=== PATIENT | female | born 1970 | race Caucasian/White ===

== ENCOUNTER 2016-08-01 10:34 | Day surgery (SDC) | payer BC ==
[~2016-08-01] VITALS: Ht 160 cm
[~2016-08-01 10:34] MED LIST: AMBIEN CR12.5 MG PO; COLACE-DPS100 MG PO; DIOVAN HCT 3201 EAC1 PO; EFFEXOR XR DPS150 MG PO; GLUCOPHAGE1000 MG PO; KEFLEX-DPS500 MG PO; LASIX DPS20 MG PO; NEURONTIN DPS300 MG PO; NORCO 7.5-3251 EACH PO; TRICOR145 MG PO; VALIUM-DPS5 MG PO; ZOCOR DPS40 MG PO
--- NOTE | 2016-08-02 07:52 | OR ---
ADMIT: 08/01/2016 RM/LOC: [facility] MR#: [id number] [address] [place] [id number] K[address] [place] [address] Operative/Delivery Room Report SEX: F AGE: 46 : 1970 SURGERY DATE: 08/01/2016 SURGEON: Jose Alberts MD SPACE ENGINEER: None. PREPROCEDURE DIAGNOSES: 1. Left sacroiliac joint dysfunction. 2. Left-sided buttock pain. POSTPROCEDURE DIAGNOSES: 1. Left sacroiliac joint dysfunction. 2. Left-sided buttock pain. PROCEDURE PERFORMED: Left sacroiliac joint injection. INDICATIONS FOR PROCEDURE: The patient is a pleasant female with history of chronic low back pain secondary to above mentioned diagnoses, comes here for planned left-sided SI joint injection. ANESTHESIA: Local without sedation. ESTIMATED BLOOD LOSS: Zero. COMPLICATIONS: None immediately evident. DESCRIPTION OF PROCEDURE: After the patient was seen in the preoperative area, vitals signs were taken. Prior to the procedure, the risks, benefits, and alternative therapies were discussed at length. Patient consent was obtained and updated. The patient was taken to the fluoroscopy suite and placed on the fluoroscopy table in the prone position. Pressure points were padded to comfort, monitors applied, and a timeout performed. C-arm was brought in to identify the left SI joint. Lidocaine plain 1%, approximately 2 mL, was used to anesthetize the skin and underlying ADMIT: 08/01/2016 RM/LOC: [facility] MR#: [id number] [address] [address] [address]DA[address] [place] [address] Operative/Delivery Room Report SEX: F AGE: 46 : 1970 subcutaneous tissue. A 3.5-inch 22-gauge curved-tip needle was then advanced through the anesthetized skin and placed inside the inferior portion of the SI joint. Isovue-300 was injected into the SI joint and showed good spread into the SI joint. After correct placement was confirmed, 5 mL of 0.25% Marcaine and 80 mg of methylprednisolone were injected. The patient tolerated the procedure well without any complications. The patient was then brought to PACU where she recovered nicely. PLAN: The patient was examined after 20 minutes and had 20% reduction of pain. Discharge instructions were given, followup scheduled. The patient was discharged home with a cross country truck driver. Jose Alberts MD/ michelle JOB #: [id number] CC: Jose Alberts, Attending Physician Loi Chaney, Family Physician
== END 2016-08-01 12:07 | disposition home or self-care (01) ==
LOC: SSS 10:34
PROC: 3E0U3BZ Introduction of Anesthetic Agent into Joints, Percutaneous Approach (ICD-10-PCS; principal; 2016-08-01)
PROC: 3E0U33Z Introduction of Anti-inflammatory into Joints, Percutaneous Approach (ICD-10-PCS; principal; 2016-08-01)
DX: G89.29 Other chronic pain (principal); M53.3 Sacrococcygeal disorders, not elsewhere classified; M51.26 Other intervertebral disc displacement, lumbar region; M96.1 Postlaminectomy syndrome, not elsewhere classified; Z98.890 Other specified postprocedural states; M48.06 Spinal stenosis, lumbar region; G89.18 Other acute postprocedural pain; M71.38 Other bursal cyst, other site; Z79.899 Other long term (current) drug therapy; Z80.0 Family history of malignant neoplasm of digestive organs

== ENCOUNTER 2016-08-03 16:54 | Emergency (ER) | payer BC ==
--- NOTE | 2016-08-06 12:04 | CO ---
ADMIT: 08/03/2016 RM/LOC: ER [facility] MR#: [id number] [address] [address] KAI LAZO [address] [place] [address] Consultation SEX: F AGE: 46 : 1970 DATE OF CONSULTATION: 08/03/2016 ATTENDING PHYSICIAN: Alon Rodríguez MD CONSULTING PHYSICIAN: Alexey Joe MD This is a consult note from the ER, Dr. April Pradhan. REASON FOR CONSULT: Back pain and disk herniation. HISTORY OF PRESENT ILLNESS: Ms. Lazo is a very pleasant woman, who had been trialed for spinal cord stimulator with good relief but ended up having a pretty big disk herniation, so I performed a diskectomy on her in March. She actually has had three months of very good relief and over the last week, has had recurrent severe pain in her left leg. She did have a little bit of trouble initiating urine, but reports normal sensation and normal overall function. She is sore, but she is not weak in the leg on the left. PAST MEDICAL HISTORY: Past back surgery, diabetes mellitus, depression, hyperlipidemia, and chronic pain. SOCIAL HISTORY: She is a nonsmoker and nondrinker. FAMILY HISTORY: No history of neurosurgical disease. REVIEW OF SYSTEMS: Complete review of systems was obtained with pertinent positives in the HPI. PHYSICAL EXAMINATION: VITAL SIGNS: 155/89, 73 beats, 18 respirations, 112.4 kg, 98.9 degrees, and 100% on room air. GENERAL: She is morbidly obese 46-year-old woman, who looks older than her stated age with an atraumatic head. HEENT: No scleral icterus. Clear oropharynx. LUNGS: Normal respiratory excursion. ABDOMEN: Obese abdomen. NEUROLOGICAL EXAMINATION: MENTAL STATUS: She is awake, alert, and oriented x4. She has no dysphonia, dysarthria, or aphasia. Her affect is appropriate. Her thought content is normal. CRANIAL NERVES: Cranial nerves II through XII are individually tested and found to be intact without deficit. MOTOR EXAM: Motor exam reveals 5/5 strength in bilateral upper and lower extremities. Deep tendon reflexes 3/4 in the upper and lower extremities including left ankle. CEREBELLAR: No cerebellar signs. She has severe pain. Gait was not tested. ADMIT: 08/03/2016 RM/LOC: [facility] MR#: [id number] [address] [address] RUBEN KAI M [address] [place] [address] Consultation SEX: F AGE: 46 : 1970 ASSESSMENT AND PLAN: Ms. Lazo is a very pleasant woman, who has an MRI that shows the area of disk that was just inferior most compressive to the nerve was resected. The chronically bulged area still appears to be present and I have a question of whether there is some acute new disk herniation just lateral to the prior herniation. On her MRI from today, she appears having S1 radiculitis. She may need repeat epidural steroid injection. It is possible she may need her back fused or consider placement of spinal cord stimulator. I do not think she has an emergent need for hospitalization at this time. I will plan to have her follow up with Dr. Alberts as scheduled next . Alexey Joe MD/ michelle JOB #: [id number] CC: Alon Rodríguez MD, Attending Physician Jose Alberts MD, Family Physician Jose Alberts MD
--- NOTE | 2016-08-07 10:17 | ER ---
ADMIT: 08/03/2016 RM/LOC: ER [facility] MR#: [id number] [address] [address] KAI MIRANDA [address] [place] [address] Emergency Room Report SEX: F AGE: 46 : 1970 DATE: 08/03/2016 ADDENDUM: CHIEF COMPLAINT: Low back pain. HISTORY OF PRESENT ILLNESS: This is a 46-year-old female, who has left lower sided back pain right at her SI joint. On examination, she is very tender in the left sciatica. I did do a rectal exam. She had great rectal tone. I spoke with Dr. Alexey Joe concerning this patient. He suggested doing MRI of her L-spine. He actually came in to see the patient after the MRI was done. I am sending her home with Valium for muscle relaxant, having her continue her oxycodone and follow up with Dr. Alexey Joe and Dr. Alberts as scheduled. CLINICAL IMPRESSION: Acute low back pain with bulging disc and S1 nerve root compression. DISPOSITION: Stable at discharge, and we will follow up as planned. SABRINA Malagon / Hakeem Neal MD / michelle JOB #: [id number] CC: Alon Rodríguez MD, Attending Physician Jose Alberts MD, Family Physician
== END 2016-08-03 21:00 | disposition home or self-care (01) ==
LOC: ER 16:54
DX: M51.87 Other intervertebral disc disorders, lumbosacral region (principal); I10 Essential (primary) hypertension; F32.9 Major depressive disorder, single episode, unspecified; E11.9 Type 2 diabetes mellitus without complications; Z79.82 Long term (current) use of aspirin; Z79.899 Other long term (current) drug therapy

== ENCOUNTER 2016-08-09 07:26 | Day surgery (SDC) | payer BC ==
[~2016-08-09] VITALS: Ht 160 cm; Wt 113.6 kg
--- NOTE | 2016-08-10 08:06 | OR ---
ADMIT: 08/09/2016 RM/LOC: [facility] MR#: [id number] [address] [address] KAI MIRANDA [address] [place] [address] Operative/Delivery Room Report SEX: F AGE: 46 : 1970 SURGERY DATE: 08/09/2016 SURGEON: Jose Alberts MD SAFETY PIN ASSEMBLING MACHINE OPERATOR: None. PREOPERATIVE DIAGNOSES: 1. Lumbar disk degeneration. 2. Lumbosacral radiculopathy. POSTOPERATIVE DIAGNOSES: 1. Lumbar disk degeneration. 2. Lumbosacral radiculopathy. PROCEDURE PERFORMED: Left L4-L5 and L5-S1 transforaminal steroid injection. INDICATIONS FOR PROCEDURE: The patient is a pleasant female with history of chronic low back pain with radicular symptoms, comes here for planned transforaminal injection. ANESTHESIA: Local without sedation. ESTIMATED BLOOD LOSS: Zero. COMPLICATIONS: None immediately evident. DESCRIPTION OF THE PROCEDURE: After the patient was seen in the preoperative area, vitals signs were taken. Prior to the procedure, the risks, benefits, and alternative therapies were discussed at length. Patient consent was obtained and updated. The patient was taken to the fluoroscopy suite and placed on the fluoroscopy table in the prone position. Pressure points were padded to comfort, monitors applied, and a timeout performed. The patient's lumbosacral area was then prepped and draped sterilely using ChloraPrep. C-arm fluoroscopy was then brought in to identify the transverse process of L4 and L5 on the left side. Lidocaine 1%, approximately 2 mL, was used to anesthetize the skin and underlying subcutaneous tissue. A 3.5-inch curved-tip 22-gauge spinal needle then was entered and advanced to make contact with the inferomedial portion of the transverse process on the left. ADMIT: 08/09/2016 RM/LOC: [facility] MR#: [id number] [id number] [place], [place] [address] KAI MIRANDA [address] [place] [address] Operative/Delivery Room Report SEX: F AGE: 46 : 1970 The needle was then worked off in a corkscrew method and placed into the uppermost portion of the neural foramina. A total of 2 mL of Isovue was instilled showing excellent epidural, as well as nerve root sheath, spread. The patient had reproduction of her typical pain. The patient then received 2 mL of 80 mg of Depo Medrol and 0.25% Marcaine plain distributed at each level. The patient tolerated the procedure well, had no complications, and was taken to the PACU. PLAN: The patient was examined after 20 minutes and had 40% reduction of pain. Discharge instructions were given, followup scheduled. The patient was discharged home with a school bus driver/custodian. Jose Alberts MD/ michelle JOB #: [id number] CC: Jose Alberts, Attending Physician Loi Chaney, Family Physician
== END 2016-08-09 09:34 | disposition home or self-care (01) ==
LOC: SSS 07:26
PROC: 3E0R3BZ Introduction of Anesthetic Agent into Spinal Canal, Percutaneous Approach (ICD-10-PCS; principal; 2016-08-09)
PROC: 3E0R33Z Introduction of Anti-inflammatory into Spinal Canal, Percutaneous Approach (ICD-10-PCS; principal; 2016-08-09)
DX: G89.29 Other chronic pain (principal); M51.17 Intervertebral disc disorders with radiculopathy, lumbosacral region; Z79.82 Long term (current) use of aspirin; Z79.899 Other long term (current) drug therapy

== ENCOUNTER 2016-08-29 07:00 | Day surgery (SDC) | payer BC ==
[~2016-08-29] VITALS: Ht 160 cm; Wt 110.5 kg
--- NOTE | 2016-09-03 08:15 | OR ---
ADMIT: 08/29/2016 RM/LOC: [facility] MR#: [id number] [address] [address] KAI MIRANDA [address] [place] [address] Operative/Delivery Room Report SEX: F AGE: 46 : 1970 SURGERY DATE: 08/29/2016 SURGEON: Alexey Joe MD PREOPERATIVE DIAGNOSIS: Radiculopathy on the left from lumbar 5-sacral 1 recurrent disk herniation. POSTOPERATIVE DIAGNOSIS: Radiculopathy on the left from lumbar 5-sacral 1 recurrent disk herniation. PROCEDURE: Minimally invasive revision left-sided lumbar microdiskectomy with intraoperative microscopy with direct visualization of decompressed elements. This case was substantially more difficult than usual due to the extensive scarring encountered as well as a large disk fragment with difficulty discerning scar tissue from dura or from disk fragments. DESCRIPTION OF PROCEDURE: After gaining informed consent, the patient was taken to the operating theater, placed under general endotracheal anesthesia in supine position and turned prone on a Manohar table. All pressure points were purposely padded prior to performing the procedure. She was prepped and draped in usual sterile fashion. A time-out was utilized to ascertain the correct site and side of surgery as well as other pertinent patient historical information. Counts were obtained at the beginning and end of the case with no change betwixt the two. Antibiotics were given within 1 hour of incision. Fluoroscope was brought in the field. The left-sided L5-S1 level was delineated. The prior incision was then opened, this was then very cautiously taken down docking the retractor on bone external to the spinal canal and sequentially dilating this. Microscope was then brought in the field and the rest of the case was done with microsurgical dissection technique. Extensive scar tissue was noted, this was very cautiously dissected down to torres martinez bone which was able to be visualized. There was extensive scar tissue. Portions of normalized ligamentum flavum and lamina were bit off fashioning an additional laminectomy at lumbar 5-sacral 1 on the left. The severely scarred down areas were delineated, this was scarred down both laterally and medially with difficulty telling the scar tissue from the dura during portions of the case. There was never any sign of CSF leak or neurological impairments. I very cautiously found a plane that could be opened microsurgically with some tissue that looked like scar tissue although after initially very gently manipulating it with the pituitary rongeur, it was noted to have some freedom to it and this was removed. This turned out to be a very large piece of herniated nucleus pulposus. Things were significantly more decompressed. At this point, I turned to resecting some components of synovial cyst that was also at this level from degenerative change in the facet. Once all this was completed, pristine hemostasis was obtained. The area was evaluated with no sign of CSF leak although in an abundance of caution, I elected to place some fibrin glue over the top should there have been any microperforations. Once ADMIT: 08/29/2016 RM/LOC: [facility] MR#: [id number] [address] [place] [id number] KAI MIRANDA [facility] [place] [address] Operative/Delivery Room Report SEX: F AGE: 46 : 1970 this was all completed, attention was turned to closure. The tube was withdrawn after gaining pristine hemostasis. The wound was closed with simple, inverted, interrupted 2-0 Vicryl in the deep tissue and subcuticular 3- 0 Stratafix on the skin with Steri-Strips over that. COMPLICATIONS: None. ESTIMATED BLOOD LOSS: Charted. SPECIMEN: Cyst and disk. DISPOSITION: Extubated and taken to postanesthesia care unit. Alexey Joe MD/ michelle JOB #: [id number] CC: Alexey Joe, Attending Physician Loi Chaney, Family Physician
== END 2016-08-29 13:58 | disposition home or self-care (01) ==
LOC: SSS 07:00
PROC: 01NB0ZZ Release Lumbar Nerve, Open Approach (ICD-10-PCS; principal; 2016-08-29)
PROC: 0SB20ZZ Excision of Lumbar Vertebral Disc, Open Approach (ICD-10-PCS; principal; 2016-08-29)
DX: M51.17 Intervertebral disc disorders with radiculopathy, lumbosacral region (principal); M71.30 Other bursal cyst, unspecified site; E11.9 Type 2 diabetes mellitus without complications; E78.5 Hyperlipidemia, unspecified; I10 Essential (primary) hypertension; G47.30 Sleep apnea, unspecified; G89.4 Chronic pain syndrome; M48.06 Spinal stenosis, lumbar region; E66.01 Morbid (severe) obesity due to excess calories; F15.90 Other stimulant use, unspecified, uncomplicated; Z68.41 Body mass index [BMI] 40.0-44.9, adult; Z98.890 Other specified postprocedural states